=== PATIENT | female | born 1970 | race Caucasian/White ===

== ENCOUNTER 2019-04-25 08:55 | Inpatient (IN) | payer OTHER ==
[2019-04-25] VITALS (10 sets, daily range): BP systolic 96–131; BP diastolic 48–76
[~2019-04-25] VITALS: Ht 160 cm; Wt 109.9 kg
[~2019-04-25 08:55] MED LIST: ASPI-621 PO; IV RINGERS,LACTATED 1000ML 1,000 ML IV SCH; LIDOCAINE 1% PF 2 ML VIAL. ID PRN; MORPHINE SULFATE 2 MG/ML VIAL. IV PRN; ONDANSETRON PF 4 MG/2 ML VIAL. IV PRN; PROCHLORPERAZINE 10 MG/2 ML VIAL. IV PRN; ZOLP10TA PO; fentaNYL PF VIAL 100 MCG/2 ML VIAL IV PRN
[2019-04-25] MEDS ORDERED: MIDAZOLAM HCL/PF 2 MG/2 ML VIAL. ONE (09:04)
[2019-04-25] MEDS ORDERED: fentaNYL PF VIAL 100 MCG/2 ML VIAL ONE ×2 (09:04→11:47)
[2019-04-25] MEDS ORDERED: ONDANSETRON PF 4 MG/2 ML VIAL. ONE (09:05)
[2019-04-25] MEDS ORDERED: LIDOCAINE 2% PF 5 ML VIAL. ONE (09:05)
[2019-04-25] MEDS ORDERED: DEXAMETHASONE SOD PHOS 4 MG/ML VIAL ONE (09:05)
[2019-04-25] MEDS ORDERED: PROPOFOL 20 ML IV ONE ×2 (09:05→11:23)
[2019-04-25] MEDS ORDERED: ROCURONIUM 50 MG/5 ML VIAL. ONE ×2 (09:07→10:48)
[2019-04-25] MEDS ORDERED: SURGICEL HEMOSTAT 4X8 EACH. ONE (09:11)
[2019-04-25] MEDS ORDERED: SCOPOLAMINE 1.5MG PATCH. TD ONE (09:45)
[2019-04-25 09:56] LABS: BASO # 0.1 x10^3/uL (0.0-0.2); BASO % 1 % (0-3); EOS # 0.1 x10^3/uL (0.0-0.7); EOS % 1 % (0-3); HEMATOCRIT 22.8 % (36.0-47.0); LYMPH # 1.3 x10^3/uL (1.0-4.8); LYMPH % 15 % (24-48); MEAN CORPUSCULAR HEMOGLOBIN 20 pg (25-35); MEAN CORPUSCULAR HGB CONC 30 g/dL (31-37); MEAN CORPUSCULAR VOLUME 68 fL (79-100); MONO # 0.8 x10^3/uL (0.0-1.1); MONO % 9 % (0-9); NEUT # 6.6 x10^3/uL (1.8-7.7); NEUT % 75 % (31-73); PLATELET COUNT 476 x10^3/uL (140-400); RED BLOOD COUNT 3.35 x10^6/uL (3.50-5.40); RED CELL DISTRIBUTION WIDTH 18.8 % (11.5-14.5); WHITE BLOOD COUNT 8.8 x10^3/uL (4.0-11.0)
[2019-04-25 10:04] LABS: HEMOGLOBIN 6.8 g/dL (12.0-15.5)
[2019-04-25] MEDS ORDERED: ALBUMIN HUMAN 5% 500 ML IV ONE (10:28)
[2019-04-25] MEDS ORDERED: ceFAZolin 2GM PREMIX 2 GM/50 ML BAG IV ONE (11:00)
[2019-04-25] MEDS ORDERED: NEOSTIGMINE 10 MG/10 ML VIAL. ONE (11:02)
[2019-04-25] MEDS ORDERED: GLYCOPYRROLATE 1 MG/5 ML VIAL. ONE (11:03)
[2019-04-25] MEDS ORDERED: SEVOFLURANE 61 TO 120 MINUTES. IH ONE (11:04)
--- NOTE | 2019-04-25 11:34 | PDOC ---
BRIEF OPERATIVE NOTE Date: Apr 25, 2019 Pre-Op Diagnosis 1. Fibroids 2. Menorrhagia 3. Dysmenorrhea 4. Anemia Post-Op Diagnosis Same Procedure Performed Open Laparotomy Supracervical Hysterectomy Surgeon Dr. Calixto Lock Expert Dr. Burleson Anesthesia Type: General Blood Loss 200 ml Specimens Obtained uterus, marco. fallopian tubes Findings enlarged fibroid uterus, nml fallopian tubes and ovaries marco. Complications none Operative Note see dictation GAGAN CALIXTO Jr, MD Apr 25, 2019 11:34
[2019-04-25] MEDS ORDERED: PROCHLORPERAZINE 10 MG/2 ML VIAL. IV PRN (11:45)
[2019-04-25] MEDS ORDERED: diphenhydrAMINE HCL 25 MG CAPSULE PO PRN (11:45)
[2019-04-25] MEDS ORDERED: diphenhydrAMINE 50 MG/ML VIAL IV PRN (11:45)
[2019-04-25] MEDS ORDERED: 0.9 % SODIUM CHLORIDE 10 ML DISP.SYRIN. IV PRN (11:45)
[2019-04-25] MEDS ORDERED: NALOXONE 0.4 MG/ML VIAL. IV PRN (11:45)
[2019-04-25] MEDS ORDERED: ONDANSETRON PF 4 MG/2 ML VIAL. IV PRN (11:45)
[2019-04-25] MEDS ORDERED: KETOROLAC 30 MG/ML VIAL. IV PRN (11:45)
[2019-04-25] MEDS ORDERED: DEXTROSE 50% 25 GM / 50ML DISP.SYRIN. IV PRN (11:45)
[2019-04-25] MEDS ORDERED: ZOLPIDEM 5 MG TABLET. PO PRN (11:45)
[2019-04-25] MEDS: fentaNYL PF VIAL 100 MCG/2 ML VIAL IV PRN ×2 (11:50→12:02)
[2019-04-25] MEDS ORDERED: MORPHINE SULFATE 2 MG/ML VIAL. ONE (11:50)
[2019-04-25] MEDS ORDERED: fentaNYL STANDARD PCA 600 MCG/30 ML PCA.SYRING IV ONE ×2 (11:57→23:24)
[2019-04-25] MEDS ORDERED: HYDROmorphone 2 MG/ML VIAL ONE (12:00)
--- NOTE | 2019-04-25 12:03 | OP ---
DATE OF SURGERY: 04/25/2019 PREOPERATIVE DIAGNOSES: 1. Fibroids. 2. Menorrhagia. 3. Dysmenorrhea. 4. Severe anemia. POSTOPERATIVE DIAGNOSES: 1. Fibroids. 2. Menorrhagia. 3. Dysmenorrhea. 4. Severe anemia. PROCEDURE: Open laparotomy, supracervical hysterectomy. SURGEON: Gagan Calixto MD ARBORER: Dr. Burleson. ANESTHESIA: GETA. ESTIMATED BLOOD LOSS: 200 mL. COMPLICATIONS: None. FINDINGS: Enlarged fibroid uterus, normal fallopian tubes and ovaries bilaterally. SUMMARY: A 48-year-old female with long history of menorrhagia, dysmenorrhea, and fibroid uterus, requiring hysterectomy. The patient was found to have severe anemia of hemoglobin of 6.8 just prior to surgery today. The patient was counseled on risks, benefits and expectations and possible blood transfusion and voiced clear understanding to proceed. DESCRIPTION OF PROCEDURE: The patient was taken to surgery suite and placed in dorsal supine position. She was prepped with ChloraPrep and draped in a sterile fashion. After adequate anesthesia, a Pfannenstiel skin incision was made with the scalpel down to and through the fascia. The fascia was extended laterally using curved Abraham scissors. The superior edge of the fascia was grasped with 2 Justice clamps and dissected free of the abdominal rectus muscles using blunt dissection along with Bovie cautery. The same process took place inferiorly. The abdominal rectus muscle was dissected bluntly at the midline. Peritoneum was grasped with 2 hemostats and entered sharply with Metzenbaum scissors. This incision was extended superiorly as well as inferiorly. Al ring retractor was placed for retraction purposes. The uterus was grasped at the cornual region bilaterally with Justice clamps. The fallopian tubes and ovaries appeared normal bilaterally. The uterus was enlarged with multiple fibroids as well as one in the posterior cervical area. The bilateral fallopian tubes were grasped with Babcocks, clamped with curved Bartolo clamps, cut, and suture ligated and removed from the pelvic sidewall. The right round ligament was identified and grasped with smooth pickups. Two 2-0 Vicryl sutures were placed proximal and distal area of the round ligament. Bovie cautery was utilized to dissect between the 2 sutures. The same process took place with the left round ligament. The uteroovarian pedicle was clamped bilaterally with curved Bartolo clamps, cut, and suture ligated. Two additional pedicles were taken just adjacent to the uterus, which were clamped, cut, and suture ligated. The posterior fibroid was dissected out using Metzenbaum scissors and blunt dissection and removed. The peritoneum was reapproximated using 2-0 Vicryl suture in a [id number] manner. The bladder flap was created using sharp dissection with Metzenbaum scissors. A moist sponge stick was also further utilized to dissect the bladder away from the lower uterine segment. The cervix was then removed at the level of the lower uterine segment using Bovie cautery. The remaining cervix and cervical canal was fulgurated with the Bovie cautery. The area was hemostatic. Warm irrigation was utilized to verify good hemostasis. The Al ring retractor was then removed. The peritoneum was reapproximated using 1 Vicryl suture in running fashion. Fascia was reapproximated using Stratafix in running fashion. Skin was reapproximated using 4-0 Vicryl suture in subcuticular manner. Prevena wound VAC was placed. The patient did receive 2 units of packed red blood cells during the operation. The patient tolerated the procedure well and was taken to recovery room in stable condition. Sponge and needle count correct x 3. GAGAN CALIXTO MD DR: WARREN/hany JOB#: [id number] / [id number]
[2019-04-25] MEDS: HYDROmorphone 2 MG/ML VIAL IV PRN ×2 (12:42→12:53)
[2019-04-25 12:54] LABS: HEMATOCRIT 28.2 % (36.0-47.0); HEMOGLOBIN 8.4 g/dL (12.0-15.5); RED BLOOD COUNT 3.86 x10^6/uL (3.50-5.40); RED CELL DISTRIBUTION WIDTH 21.3 % (11.5-14.5); WHITE BLOOD COUNT 23.2 x10^3/uL (4.0-11.0)
[2019-04-25 13:19] LABS: ANISOCYTOSIS SLIGHT; HYPOCHROMIA MARKED; MICROCYTOSIS MARKED; PLT ESTIMATE INCREASED (ADEQUATE); POLYCHROMASIA PRESENT
[2019-04-25] MEDS: GABAPENTIN 300 MG CAPSULE. PO SCH ×2 (14:30→22:24)
[2019-04-25] MEDS: IV NORMAL SALINE 1000ML BAG 1,000 ML IV SCH (22:24)
[2019-04-26 03:51] VITALS: BP 97/74
[2019-04-26] MEDS: GABAPENTIN 300 MG CAPSULE. PO SCH ×3 (05:29→22:46)
[2019-04-26 06:03] LABS: BASO # 0.1 x10^3/uL (0.0-0.2); BASO % 1 % (0-3); EOS % 0 % (0-3); HEMATOCRIT 24.6 % (36.0-47.0); HEMOGLOBIN 7.5 g/dL (12.0-15.5); LYMPH # 1.7 x10^3/uL (1.0-4.8); LYMPH % 13 % (24-48); MEAN CORPUSCULAR HEMOGLOBIN 22 pg (25-35); MEAN CORPUSCULAR HGB CONC 30 g/dL (31-37); MEAN CORPUSCULAR VOLUME 73 fL (79-100); MONO # 1.2 x10^3/uL (0.0-1.1); MONO % 9 % (0-9); NEUT # 10.4 x10^3/uL (1.8-7.7); NEUT % 78 % (31-73); PLATELET COUNT 289 x10^3/uL (140-400); RED BLOOD COUNT 3.38 x10^6/uL (3.50-5.40); RED CELL DISTRIBUTION WIDTH 20.6 % (11.5-14.5); WHITE BLOOD COUNT 13.4 x10^3/uL (4.0-11.0)
[2019-04-26 07:00] VITALS: BP 114/62
[2019-04-26] MEDS: oxyCODONE/APAP 5/325 1 TAB TABLET PO PRN ×4 (07:32→20:02)
[2019-04-26] MEDS: SIMETHICONE 80 MG TAB.CHEW PO PRN ×2 (07:32→13:35)
[2019-04-26] MEDS: CALCIUM CARBONATE 500 MG TAB.CHEW PO PRN ×2 (07:32→13:35)
[2019-04-26] MEDS: IV NORMAL SALINE 1000ML BAG 1,000 ML IV SCH (08:03)
[2019-04-26 11:00] VITALS: BP 96/58
[2019-04-26 15:00] VITALS: BP 102/61
[2019-04-26] MEDS ORDERED: MAGNESIUM HYDROXIDE 2,400 MG/30 ML ORAL.SUSP. PO ONE (15:30)
--- NOTE | 2019-04-26 15:32 | PDOC ---
GENERAL General: No fever. Pt wants to have laxative. Incision healing. VITAL SIGNS Vital Signs/I&O: Vital Signs Date Time Temp Pulse Resp B/P (MAP) Pulse Ox O2 Delivery O2 Flow Rate FiO2 04/26/19 11:00 97.7 89 14 96/58 (71) 95 Room Air 97.7 04/26/19 08:00 2.0 I & O 04/25/19 04/25/19 04/26/19 14:59 22:59 06:59 Intake Total 2650 ml 410 ml 120 ml Output Total 425 ml 250 ml 1200 ml Balance 2225 ml 160 ml -1080 ml ALLERGIES Allergies: Allergies Coded Allergies Type Severity Reaction Last Updated Verified Sulfa (Sulfonamide Antibiotics) Allergy Intermediate RASH,HIVES 04/22/19 Yes latex Allergy Intermediate "JOSE SKIN" 04/22/19 Yes tramadol Adverse Reaction Intermediate "MAJOR MOOD SWINGS" 04/22/19 Yes LAB Lab: Laboratory Tests Test 04/26/19 05:12 White Blood Count 13.4 x10^3/uL (4.0-11.0) H Red Blood Count 3.38 x10^6/uL (3.50-5.40) L Hemoglobin 7.5 g/dL (12.0-15.5) L Hematocrit 24.6 % (36.0-47.0) L Mean Corpuscular Volume 73 fL (79-100) L Mean Corpuscular Hemoglobin 22 pg (25-35) L Mean Corpuscular Hemoglobin Concent 30 g/dL (31-37) L Red Cell Distribution Width 20.6 % (11.5-14.5) H Platelet Count 289 x10^3/uL (140-400) Neutrophils (%) (Auto) 78 % (31-73) H Lymphocytes (%) (Auto) 13 % (24-48) L Monocytes (%) (Auto) 9 % (0-9) Eosinophils (%) (Auto) 0 % (0-3) Basophils (%) (Auto) 1 % (0-3) Neutrophils # (Auto) 10.4 x10^3/uL (1.8-7.7) H Lymphocytes # (Auto) 1.7 x10^3/uL (1.0-4.8) Monocytes # (Auto) 1.2 x10^3/uL (0.0-1.1) H Eosinophils # (Auto) 0.0 x10^3/uL (0.0-0.7) Basophils # (Auto) 0.1 x10^3/uL (0.0-0.2) Laboratory Tests 04/26/19 05:12 ASSESSMENT & PLAN A&P Abdomen soft. Vital signs stable. Incision healing ok. MIRA COWAN MD Apr 26, 2019 15:31
[2019-04-26 19:00] VITALS: BP 106/78
--- NOTE | 2019-04-26 23:51 | NUR ---
Administered 2 Percocet at 2001, scanned but it did not save.
[2019-04-27] MEDS: oxyCODONE/APAP 5/325 1 TAB TABLET PO PRN ×4 (00:43→13:45)
[2019-04-27 03:26] VITALS: BP 101/66
[2019-04-27] MEDS: GABAPENTIN 300 MG CAPSULE. PO SCH ×2 (05:26→13:44)
[2019-04-27 07:00] VITALS: BP 107/63
[2019-04-27] MEDS ORDERED: MAGNESIUM HYDROXIDE 2,400 MG/30 ML ORAL.SUSP. PO ONE (07:15)
[2019-04-27 08:12] VITALS: BP 107/63
--- NOTE | 2019-04-27 08:51 | PDOC ---
GENERAL General: Pt doing better. No Bleeding. VITAL SIGNS Vital Signs/I&O: Vital Signs Date Time Temp Pulse Resp B/P (MAP) Pulse Ox O2 Delivery O2 Flow Rate FiO2 04/27/19 08:12 97.9 79 16 107/63 (78) Room Air 95.0 97.9 04/27/19 07:00 95 I & O 04/26/19 04/26/19 04/27/19 15:00 23:00 07:00 Intake Total 1400 ml 1000 ml 1200 ml Balance 1400 ml 1000 ml 1200 ml ALLERGIES Allergies: Allergies Coded Allergies Type Severity Reaction Last Updated Verified Sulfa (Sulfonamide Antibiotics) Allergy Intermediate RASH,HIVES 04/22/19 Yes latex Allergy Intermediate "JOSE SKIN" 04/22/19 Yes tramadol Adverse Reaction Intermediate "MAJOR MOOD SWINGS" 04/22/19 Yes MEDS Medications: Current Medications Medications (Trade) Dose Ordered Sig/Josh Route PRN Reason Start Time Stop Time Status Last Admin Dose Admin Magnesium Hydroxide (Milk Of Magnesia) 2,400 mg 1X ONCE PO 04/26/19 15:30 04/26/19 15:31 DC 04/26/19 15:59 Magnesium Hydroxide (Milk Of Magnesia) 2,400 mg 1X ONCE PO 04/27/19 07:15 04/27/19 07:26 DC 04/27/19 07:42 ASSESSMENT & PLAN A&P dismissed to Home today. Pt to call Dr Barnes office and make appt in 2 weeks. MIRA COWAN MD Apr 27, 2019 08:51
[2019-04-27 11:00] VITALS: BP 111/64
--- NOTE | 2019-04-27 15:20 | NUR ---
Wound Care Pt seen for Prevena follow up and transition from hospital vac to Prevena pack motor. Motor unable to maintain seal and suction with current dressing d/t numerous puckers and folds in transparent drape, even after multiple attempts to patch and seal with additional drape. Per physician orders of pt needing discharge with Prevena in place, a new Prevena dressing was applied. Original dressing removed, incision line well approximated, scant serosanguinous drainage on dressing, incision line cleaned with chloroprep swabs and new Prevena dressing was applied. Strong seal achieved, no leaks noted, pt education provided re: device and removal in 7 days when engine turns off. Evette, RN at bedside, to provide additional d/c instructions re: incisional care after Prevena removal. Hospital vac returned to [facility] for cleaning, Fady, wound Director at bedside for dressing change.
--- NOTE | 2019-04-27 17:10 | NUR ---
Patient discharged home with significant other at bedside. No IV access this shift. Patient and family were provided with discharge instructions, including follow up instructions, mobility restrictions, and wound care. Patient was also provided patient teaching regarding her Provena Wound Vac. Patient was assisted to the car by this RN
--- NOTE | 2019-04-28 09:07 | PATHOLOGY ---
[facility] Accession Number: [id number] . 01 Material submitted: . PART A: fallopian tube - RIGHT FALLOPIAN TUBE. Modifiers: right PART B: fallopian tube - LEFT FALLOPIAN TUBE. Modifiers: left PART C: uterus - UTERUS . 01 Clinical history: . Abnormal uterine bleeding . 02 Diagnosis: A. Fallopian tube, right, tubal ligation: - Segment of fallopian tube with evidence of complete transection. . B. Fallopian tube, left, tubal ligation: - Segment of fallopian tube with evidence of complete transection. . C. Uterus, supracervical hysterectomy: - Secretory phase endometrium. - Myometrium with multiple leiomyomata, up to 4.7 cm. - Serosal surface with focal adhesions. . (SKM:tommy; 04/27/2019) [facility] 04/27/2019 1612 Local . 02 Electronically signed: . Tomas Vickers MD, Pathologist NPI- [id number] . 01 Gross description: . A. The specimen is received in formalin, labeled "Taylor Siddiqui, right fallopian tube". Received is a non-fimbriated fallopian tube measuring 2.4 cm in length by 0.5 cm in diameter. The serosal surface is pink-irwin and glistening in appearance. Sectioning reveals a patent lumen. The specimen is submitted representatively in cassette A1. . B. The specimen is received in formalin, labeled "Taylor Siddiqui, left fallopian tube". Received is a fimbriated fallopian tube measuring 1.5 cm in length by 0.5 cm in diameter. The serosal surface is pink-irwin and smooth in appearance. Sectioning reveals a pinpoint to patent lumen. The specimen is submitted representatively in cassette B1. . C. The specimen is received in formalin, labeled "Taylor Siddiqui, uterus". Received is a 228 Gram, 7.5 x 7.9 x 6.1 cm uterine corpus. The uterine serosa is pink-irwin in appearance with a slight amount of overlying adhesions. The cervix is absent. The uterine corpus cannot be oriented. Opening the specimen reveals a triangular endometrial cavity measuring 5.3 cm in length by 2.8 cm in width. The endometrium is pale irwin, glistening and lush in appearance, and measures up to 0.3 cm in thickness. Serial sectioning reveals a irwin-pink, trabeculated myometrium measuring up to up to 3.0 cm in thickness displaying multiple intramural fibroids ranging in size from 0.3 to 2.1 cm in maximum dimensions. . Also received within the specimen container is a 30 g, 4.7 x 3.5 x 3.5 cm fibroid. Sectioning reveals white-irwin, whorled cut surfaces with no gross evidence of degeneration or necrosis. The specimen is submitted representatively as follows: . C1 serosal adhesions C2-C3 endomyometrium and opposite endomyometrium with fibroids C4-C5 senior outside sales representative sections of intramural fibroids C6 senior outside sales representative sections of separately submitted fibroid. (CAA; 04/26/2019) QAC/QAC 04/26/2019 1613 Local . 02 Pathologist provided ICD-10: D25.9, N73.6, Z30.2 . 02 CPT . 199058, 782319, [id number] Specimen Comment: A courtesy copy of this report has been sent to [phone] Specimen Comment: Report sent to Specimen Comment: A duplicate report has been generated due to demographic updates. Performed at: 01 [facility] [address], [place] [id number] MD Festus Duarte MD Phone: [phone] Performed at: 02 [facility] [address] [place], [place] [id number] MD John Woodward MD Phone: [phone]
== END 2019-04-27 15:45 | disposition home or self-care (01) | DRG 743 ==
LOC: SURG 08:55 → EDBD 09:30 → 3 NORTH 11:34 → OBSVTOIN 11:36 → INTOOBSV 11:36
PROVIDERS: ADMIT Obstetrics & Gynecology; ATTEND Obstetrics & Gynecology
PROC: 30233N1 Transfusion of Nonautologous Red Blood Cells into Peripheral Vein, Percutaneous Approach (ICD-10-PCS; 2019-04-25)
PROC: 0UT90ZL Resection of Uterus, Supracervical, Open Approach (ICD-10-PCS; principal; 2019-04-25 09:30)
DX: D25.9 Leiomyoma of uterus, unspecified (principal); N92.0 Excessive and frequent menstruation with regular cycle; N94.6 Dysmenorrhea, unspecified; D64.9 Anemia, unspecified; Z88.2 Allergy status to sulfonamides; Z88.8 Allergy status to other drugs, medicaments and biological substances; Z91.040 Latex allergy status
CPT/HCPCS: 36415; 81025; 85025; 85027; 86850; 86900; 86901; 86920; A7015; G0379; J0696; J1100; J1170; J2001; J2250; J2270; J2405; J2704; J2710; J3010; J3490; J7030; J7120; P9016; P9045; A4461; G0378

== ENCOUNTER 2019-05-09 10:58 | Observation (INO) | payer OTHER ==
[~2019-05-09] VITALS: Ht 162.6 cm; Wt 104.3 kg
[~2019-05-09 10:58] MED LIST changes: -IV RINGERS,LACTATED 1000ML 1,000 ML IV SCH; -LIDOCAINE 1% PF 2 ML VIAL. ID PRN; -MORPHINE SULFATE 2 MG/ML VIAL. IV PRN; -ONDANSETRON PF 4 MG/2 ML VIAL. IV PRN; -PROCHLORPERAZINE 10 MG/2 ML VIAL. IV PRN; -fentaNYL PF VIAL 100 MCG/2 ML VIAL IV PRN
[2019-05-09] MEDS ORDERED: MORPHINE SULFATE 4 MG/ML VIAL. IV ONE ×2 (11:45→13:30)
[2019-05-09] MEDS ORDERED: ONDANSETRON PF 4 MG/2 ML VIAL. IV ONE (11:45)
[2019-05-09 12:19] LABS: BASO # 0.1 x10^3/uL (0.0-0.2); BASO % 1 % (0-3); EOS # 0.3 x10^3/uL (0.0-0.7); EOS % 2 % (0-3); HEMOGLOBIN 8.4 g/dL (12.0-15.5); LYMPH % 18 % (24-48); MEAN CORPUSCULAR HEMOGLOBIN 22 pg (25-35); MEAN CORPUSCULAR HGB CONC 31 g/dL (31-37); MEAN CORPUSCULAR VOLUME 70 fL (79-100); MONO # 0.9 x10^3/uL (0.0-1.1); MONO % 8 % (0-9); NEUT # 7.8 x10^3/uL (1.8-7.7); NEUT % 71 % (31-73); PLATELET COUNT 573 x10^3/uL (140-400); RED BLOOD COUNT 3.86 x10^6/uL (3.50-5.40); RED CELL DISTRIBUTION WIDTH 21.7 % (11.5-14.5)
[2019-05-09 12:25] LABS: CALCIUM 8.9 mg/dL (8.5-10.1); CREATININE 0.7 mg/dL (0.6-1.0); GFR 90.1; POTASSIUM 3.9 mmol/L (3.5-5.1)
[2019-05-09 12:31] LABS: ALBUMIN 3.8 g/dL (3.4-5.0); PROTHROMBIN TIME PATIENT 13.1 SEC (11.7-14.0); TOTAL BILIRUBIN 0.3 mg/dL (0.2-1.0); TOTAL PROTEIN 7.7 g/dL (6.4-8.2)
[2019-05-09] MEDS ORDERED: IOHEXOL 300 MG/ML 100ML VIAL. IV ONE (13:00)
[2019-05-09 13:09] LABS: PLT ESTIMATE INCREASED (ADEQUATE)
[2019-05-09] MEDS ORDERED: CONTRAST GIVEN. MC PRN (13:15)
[2019-05-09 13:17] LABS: ANISOCYTOSIS MOD; MICROCYTOSIS MOD
[2019-05-09 13:18] LABS: HYPOCHROMIA SLIGHT; OVALOCYTES FEW; POIKILOCYTOSIS MOD; POLYCHROMASIA SLIGHT; STOMATOCYTES FEW; TARGET CELLS FEW; TEAR DROP CELLS FEW
--- NOTE | 2019-05-09 14:01 | RAD ---
PQRS Compliance Statement: One or more of the following individualized dose reduction techniques were utilized for this examination: 1. Automated exposure control 2. Adjustment of the mA and/or kV according to patient size 3. Use of iterative reconstruction technique CT abdomen/pelvis with contrast 05/09/2019 11:42 AM INDICATION: Lower abdominal pain with recent hysterectomy. COMPARISON: None available TECHNIQUE: Multiple axial CT images of the abdomen and pelvis were obtained after the intravenous administration of 75 mL Omnipaque 300. Coronal and sagittal reformats are provided. FINDINGS: Lung bases are clear. Heart size within normal limits. There is a moderate sized hiatal hernia. Liver, spleen, bilateral adrenal glands, pancreas and gallbladder are normal in appearance. Abdominal aorta is normal in course and caliber. No pathologically enlarged lymph nodes are identified in abdomen and pelvis. There is no free fluid or free intraperitoneal air. The kidneys enhance symmetrically. There is no suspicious renal mass. There is no hydronephrosis. There are no suspected calculi within the kidneys, ureters or urinary bladder. Urinary bladder is within normal limits given degree of distention. Left adnexal cyst measures 3.5 cm and may represent a dominant follicle or hemorrhagic cyst. Mild infiltration is identified along the fat along the margins of the vaginal cuff. Mild colonic diverticulosis. There are is mild mural edema involving the cecum which is poorly evaluated without oral contrast. Appendix is not definitively visualized. There is a subcutaneous fluid collection measuring 2.8 x 14.8 x 7.8 cm along the inferior pannus. There is associated skin thickening. No definite rim enhancement is visualized. Consideration may be given for a postoperative seroma although sterility of the collection is indeterminate. IMPRESSION: 1. There is a superficial subcutaneous fluid collection superior to the mons along the inferior pannus which may represent a postoperative seroma or developing abscess. 2. Inflammatory changes are identified along the vaginal cuff, likely postoperative. Left adnexal cyst measures 3.5 cm. Correlate with history of oophorectomy. The ovaries have been removed, abscess may have similar appearance. If ovaries are present, findings most favor a dominant follicle or hemorrhagic cyst. This may be confirmed with pelvic ultrasound. 3. Ill-definition of the cecum with suspected mural edema. Findings could reflect colitis. Appendix is not definitively visualized. If there is persistent clinical concern, CT pelvis with oral contrast may be of benefit. Correlate with site of abdominal pain. 4. Moderate-sized hiatal hernia. Electronically signed by: Christine Delagdo MD (05/09/2019 1:58 PM) [id number]
--- NOTE | 2019-05-09 14:09 | PHYS DOC ---
Past Medical History Past Medical History: No Pertinent History Past Surgical History: Appendectomy, Hysterectomy, Tubal ligation Additional Past Surgical Histo: CARPAL TUNNEL Alcohol Use: None Drug Use: None Adult General Chief Complaint Chief Complaint: POST-OP PROBLEM HPI HPI Patient is a 48 year old female presented to ER today for evaluation of lower abdominal pain, patient had hysterectomy 2 weeks ago. Patient felt like there is increased swelling and tenderness along the incision site area. She denies any fever, no nausea vomiting. 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 aLL OTHER ros IS NEGATIVE UNLESS OTHERWISE NOTED IN hpi Review of Systems Review of Systems See above Current Medications Current Medications Current Medications Medications (Trade) Dose Ordered Sig/Josh Start Time Stop Time Status Last Admin Dose Admin Info (CONTRAST GIVEN -- Rx MONITORING) 1 each PRN DAILY PRN 05/09/19 13:15 05/11/19 13:14 Iohexol (Omnipaque 300 Mg/ml) 75 ml 1X ONCE 05/09/19 13:00 05/09/19 13:01 DC 05/09/19 13:09 75 ML Morphine Sulfate (Morphine Sulfate) 4 mg PRN Q4HRS PRN 05/09/19 14:15 05/10/19 14:14 UNV Ondansetron HCl (Zofran) 4 mg PRN Q8HRS PRN 05/09/19 14:15 05/10/19 14:14 UNV Allergies Allergies Allergies Coded Allergies Type Severity Reaction Last Updated Verified Sulfa (Sulfonamide Antibiotics) Allergy Intermediate RASH,HIVES 04/22/19 Yes latex Allergy Intermediate "JOSE SKIN" 04/22/19 Yes tramadol Adverse Reaction Intermediate "MAJOR MOOD SWINGS" 04/22/19 Yes Physical Exam Physical Exam See above Constitutional: Well developed, well nourished, no acute distress, non-toxic appearance. [] HENT: Normocephalic, atraumatic, bilateral external ears normal, oropharynx moist, no oral exudates, nose normal. [] Eyes: PERRLA, EOMI, conjunctiva normal, no discharge. [] Neck: Normal range of motion, no tenderness, supple, no stridor. [] Cardiovascular:Heart rate regular rhythm, no murmur [] Lungs & Thorax: Bilateral breath sounds clear to auscultation [] Abdomen: Bowel sounds normal, soft, THERE IS tenderness TO PALPATION JUST BELOW THE UMBILICAL AREA, LARGE INDURATED, LOCULATED AREA ALONG THE INCISION SITE, NO OPEN WOUND, NO DRAINAGE, no masses, no pulsatile masses. [] Skin: Warm, dry, no erythema, no rash. [] Back: No tenderness, no CVA tenderness. [] Extremities: No tenderness, no cyanosis, no clubbing, ROM intact, no edema. [] Neurologic: Alert and oriented X 3, normal motor function, normal sensory function, no focal deficits noted. [] Psychologic: Affect normal, judgement normal, mood normal. [] Current Patient Data Vital Signs Vital Signs Date Time Temp Pulse Resp B/P (MAP) Pulse Ox O2 Delivery O2 Flow Rate FiO2 05/09/19 13:06 16 97 Room Air 05/09/19 11:50 98.5 82 136/72 (93) 98.5 Lab Values Laboratory Tests Test 05/09/19 12:00 White Blood Count 11.0 x10^3/uL (4.0-11.0) Red Blood Count 3.86 x10^6/uL (3.50-5.40) Hemoglobin 8.4 g/dL (12.0-15.5) L Hematocrit 27.0 % (36.0-47.0) L Mean Corpuscular Volume 70 fL (79-100) L Mean Corpuscular Hemoglobin 22 pg (25-35) L Mean Corpuscular Hemoglobin Concent 31 g/dL (31-37) Red Cell Distribution Width 21.7 % (11.5-14.5) H Platelet Count 573 x10^3/uL (140-400) H Neutrophils (%) (Auto) 71 % (31-73) Lymphocytes (%) (Auto) 18 % (24-48) L Monocytes (%) (Auto) 8 % (0-9) Eosinophils (%) (Auto) 2 % (0-3) Basophils (%) (Auto) 1 % (0-3) Neutrophils # (Auto) 7.8 x10^3/uL (1.8-7.7) H Lymphocytes # (Auto) 2.0 x10^3/uL (1.0-4.8) Monocytes # (Auto) 0.9 x10^3/uL (0.0-1.1) Eosinophils # (Auto) 0.3 x10^3/uL (0.0-0.7) Basophils # (Auto) 0.1 x10^3/uL (0.0-0.2) Platelet Estimate Increased (ADEQUATE) Polychromasia Slight Hypochromasia Slight Poikilocytosis Mod Anisocytosis Mod Microcytosis Mod Target Cells Few Tear Drop Cells Few Ovalocytes Few Stomatocytes Few Prothrombin Time 13.1 SEC (11.7-14.0) Prothrombin Time INR 1.0 (0.8-1.1) Activated Partial Thromboplast Time 31 SEC (24-38) Sodium Level 138 mmol/L (136-145) Potassium Level 3.9 mmol/L (3.5-5.1) Chloride Level 103 mmol/L (98-107) Carbon Dioxide Level 25 mmol/L (21-32) Anion Gap 10 (6-14) Blood Urea Nitrogen 15 mg/dL (7-20) Creatinine 0.7 mg/dL (0.6-1.0) Estimated GFR (Cockcroft-Gault) 90.1 BUN/Creatinine Ratio 21 (6-20) H Glucose Level 93 mg/dL (70-99) Calcium Level 8.9 mg/dL (8.5-10.1) Total Bilirubin 0.3 mg/dL (0.2-1.0) Aspartate Amino Transferase (AST) 12 U/L (15-37) L Alanine Aminotransferase (ALT) 13 U/L (14-59) L Alkaline Phosphatase 87 U/L (46-116) Total Protein 7.7 g/dL (6.4-8.2) Albumin 3.8 g/dL (3.4-5.0) Albumin/Globulin Ratio 1.0 (1.0-1.7) Lipase 105 U/L (73-393) Laboratory Tests 05/09/19 12:00 Laboratory Tests 05/09/19 12:00 EKG EKG [] Radiology/Procedures Radiology/Procedures [][facility] [address] [place] [address] IMAGING REPORT Signed PATIENT: ARCENIO SCOTTOUNT: [id number] : 1970 LOCATION: ER AGE: 48 SEX: F EXAM STATUS: REG ER ORD. PHYSICIAN: JUNIOR GOLD DO REASON: LOWER ABDOMINAL PAIN, RECENT HYSTERECTOMY PROCEDURE: CT ABD PELV W/ IV CONTRST ONLY PQRS Compliance Statement: One or more of the following individualized dose reduction techniques were utilized for this examination: 1. Automated exposure control 2. Adjustment of the mA and/or kV according to patient size 3. Use of iterative reconstruction technique CT abdomen/pelvis with contrast 05/09/2019 11:42 AM INDICATION: Lower abdominal pain with recent hysterectomy. COMPARISON: None available TECHNIQUE: Multiple axial CT images of the abdomen and pelvis were obtained after the intravenous administration of 75 mL Omnipaque 300. Coronal and sagittal reformats are provided. FINDINGS: Lung bases are clear. Heart size within normal limits. There is a moderate sized hiatal hernia. Liver, spleen, bilateral adrenal glands, pancreas and gallbladder are normal in appearance. Abdominal aorta is normal in course and caliber. No pathologically enlarged lymph nodes are identified in abdomen and pelvis. There is no free fluid or free intraperitoneal air. The kidneys enhance symmetrically. There is no suspicious renal mass. There is no hydronephrosis. There are no suspected calculi within the kidneys, ureters or urinary bladder. Urinary bladder is within normal limits given degree of distention. Left adnexal cyst measures 3.5 cm and may represent a dominant follicle or hemorrhagic cyst. Mild infiltration is identified along the fat along the margins of the vaginal cuff. Mild colonic diverticulosis. There are is mild mural edema involving the cecum which is poorly evaluated without oral contrast. Appendix is not definitively visualized. There is a subcutaneous fluid collection measuring 2.8 x 14.8 x 7.8 cm along the inferior pannus. There is associated skin thickening. No definite rim enhancement is visualized. Consideration may be given for a postoperative seroma although sterility of the collection is indeterminate. IMPRESSION: 1. There is a superficial subcutaneous fluid collection superior to the mons along the inferior pannus which may represent a postoperative seroma or developing abscess. 2. Inflammatory changes are identified along the vaginal cuff, likely postoperative. Left adnexal cyst measures 3.5 cm. Correlate with history of oophorectomy. The ovaries have been removed, abscess may have similar appearance. If ovaries are present, findings most favor a dominant follicle or hemorrhagic cyst. This may be confirmed with pelvic ultrasound. 3. Ill-definition of the cecum with suspected mural edema. Findings could reflect colitis. Appendix is not definitively visualized. If there is persistent clinical concern, CT pelvis with oral contrast may be of benefit. Correlate with site of abdominal pain. 4. Moderate-sized hiatal hernia. Electronically signed by: Tiffanie Morales MD (05/09/2019 1:58 PM) [id number] DICTATED and SIGNED BY: TIFFANIE MORALES MD DATE: 05/09/19 2077 Course & Med Decision Making Course & Med Decision Making Pertinent Labs and Imaging studies reviewed. (See chart for details) [] Dragon Disclaimer Dragon Disclaimer This electronic medical record was generated, in whole or in part, using a voice recognition dictation system. Departure Departure Impression: Primary Impression: Seroma after procedure Additional Impression: Postoperative abdominal pain Disposition: ADMITTED INPATIENT Admitting Physician: WENDY (DR. GAGAN GARCIA) Condition: STABLE Referrals: ISAAK CALLOWAY MD (PCP) Problem Qualifiers JUNIOR GOLD DO May 09, 2019 14:09
[2019-05-09] MEDS ORDERED: ONDANSETRON PF 4 MG/2 ML VIAL. IV PRN (14:15)
[2019-05-09] MEDS ORDERED: fentaNYL PF VIAL 100 MCG/2 ML VIAL IVP ONE (14:30)
[2019-05-09] MEDS: MORPHINE SULFATE 4 MG/ML VIAL. IV PRN ×2 (15:51→20:00)
[2019-05-09] MEDS ORDERED: ACETAMINOPHEN 500 MG TABLET PO PRN ×2 (16:45)
[2019-05-09] MEDS ORDERED: IBUPROFEN 400 MG TABLET. PO PRN (16:45)
[2019-05-09] MEDS ORDERED: KETOROLAC 30 MG/ML VIAL. IVP PRN ×2 (16:45→20:30)
[2019-05-09 17:01] VITALS: BP 112/92
[2019-05-09] MEDS: IV RINGERS,LACTATED 1000ML 1,000 ML IV SCH ×2 (17:19→23:46)
[2019-05-09 19:00] VITALS: BP 111/74
[2019-05-09] MEDS ORDERED: oxyCODONE/APAP 7.5/325 1 TAB TABLET PO PRN (20:30)
--- NOTE | 2019-05-09 20:38 | PDOC1 ---
History and Physical Date of Admission Date of Admission DATE: 05/09/19 TIME: 20:32 Identification/Chief Complaint Chief Complaint abd pain Source Source: Chart review, Patient History of Present Illness History of Present Illness 48 y/o presented to ED with c/o abd pain and night sweats for past 2 days. She had supracervical hysterectomy open lap 1 week ago without complications. CT scan indicates seroma. She denies any drainage from incision site. Past Medical History Cardiovascular: No pertinent hx Pulmonary: No pertinent hx GI: No pertinent hx Heme/Onc: No pertinent hx Hepatobiliary: No pertinent hx Psych: No pertinent hx Rheumatologic: No pertinent hx Past Surgical History Past Surgical History: Other (supracervical hysterectomy) Current Problem List Problem List Problems Medical Problems: (1) Postoperative abdominal pain Status: Acute (2) Seroma after procedure Status: Acute Current Medications Current Medications Current Medications Morphine Sulfate (Morphine Sulfate) 4 mg 1X ONCE IV Last administered on 05/09/19at 12:14; Start 05/09/19 at 11:45; Stop 05/09/19 at 11:46; Status DC Ondansetron HCl (Zofran) 4 mg 1X ONCE IV Last administered on 05/09/19at 12:14; Start 05/09/19 at 11:45; Stop 05/09/19 at 11:46; Status DC Iohexol (Omnipaque 300 Mg/ml) 75 ml 1X ONCE IV Last administered on 05/09/19at 13:09; Start 05/09/19 at 13:00; Stop 05/09/19 at 13:01; Status DC Info (CONTRAST GIVEN -- Rx MONITORING) 1 each PRN DAILY PRN MC SEE COMMENTS; Start 05/09/19 at 13:15; Stop 05/11/19 at 13:14 Morphine Sulfate (Morphine Sulfate) 4 mg 1X ONCE IV Last administered on 05/09/19at 14:13; Start 05/09/19 at 13:30; Stop 05/09/19 at 13:32; Status DC Ondansetron HCl (Zofran) 4 mg PRN Q8HRS PRN IV NAUSEA/VOMITING; Start 05/09/19 at 14:15; Stop 05/10/19 at 14:14 Morphine Sulfate (Morphine Sulfate) 4 mg PRN Q4HRS PRN IV PAIN Last administer ed on 05/09/19at 20:00; Start 05/09/19 at 14:15; Stop 05/10/19 at 14:14 Fentanyl Citrate (Fentanyl 2ml Vial) 50 mcg 1X ONCE IVP Last administered on 05/09/19at 14:46; Start 05/09/19 at 14:30; Stop 05/09/19 at 14:31; Status DC Ringer's Solution 1,000 ml @ 150 mls/hr Q6H40M IV Last administered on 05/09/19at 17:19; Start 05/09/19 at 16:45 Acetaminophen (Tylenol) 500 mg PRN Q4HRS PRN PO MILD PAIN / TEMP; Start 05/09/19 at 16:45 Acetaminophen (Tylenol) 500 mg PRN Q6HRS PRN PO MILD PAIN / TEMP; Start 05/09/19 at 16:45; Status UNV Ibuprofen (Motrin) 800 mg PRN Q8HRS PRN PO INFLAMMATION; Start 05/09/19 at 16:45 Ketorolac Tromethamine (Toradol 30mg Vial) 30 mg PRN 1X PRN IVP PAIN; Start 05/09/19 at 16:45; Stop 05/14/19 at 16:44 Active Scripts Active Reported Ambien (Zolpidem Tartrate) 10 Mg Tablet 10 Mg PO PRN QHS PRN Excedrin Extra Strength Caplet (Aspirin/Acetaminophen/Caffeine) 1 Each Tablet 1 Each PO PRN PRN Allergies Allergies: Coded Allergies: Sulfa (Sulfonamide Antibiotics) (Verified Allergy, Intermediate, RASH,HIVES, 04/22/19) latex (Verified Allergy, Intermediate, "JOSE SKIN", 04/22/19) tramadol (Verified Adverse Reaction, Intermediate, "MAJOR MOOD SWINGS", 04/22/19) ROS General: YES: Night Sweats, Fatigue; No: Chills, Malaise, Appetite, Other PSYCHOLOGICAL ROS: YES: Anxiety; No: Behavioral Disorder, Concentration difficultie, Decreased libido, Depression, Disorientation, Hallucinations, Hostility, Irritablity, Memory difficulties, Mood Swings, Obsessive thoughts, Physical abuse, Sexual abuse, Sleep disturbances, Suicidal ideation, Other Eyes: No Blurry vision, No Decreased vision, No Double vision, No Dry eyes, No Excessive tearing, No Eye Pain, No Itchy Eyes, No Loss of vision, No Photophobia, No Scotomata, No Uses contacts, No Uses glasses, No Other HEENT: No: Heacaches, Visual Changes, Hearing change, Nasal congestion, Nasal discharge, Oral lesions, Sinus pain, Sore Throat, Epistaxis, Sneezing, Snoring, Tinnitus, Vertigo, Vocal changes, Other ALLERGY AND IMMUNOLOGY: No: Hives, Insect Bite Sensitivity, Itchy/Watery Eyes, Nasal Congestion, Post Nasal Drip, Seasonal Allergies, Other Breast: No New/Changing Breast Lumps, No Nipple changes, No Nipple discharge, No Other Respiratory: No: Cough, Hemoptysis, Orthopnea, Pleuritic Pain, Shortness of breath, SOB with excertion, Sputum Changes, Stridor, Tachypnea, Wheezing, Other Cardiovascular: No Chest Pain, No Palpitations, No Orthopnea, No Paroxysmal Noc. Dyspnea, No Edema, No Lt Headedness, No Other Gastrointestinal: Yes Nausea, Yes Vomiting, Yes Abdominal Pain, Yes Diarrhea, Yes Constipation Genitourinary: No Dysuria, No Frequency, No Incontinence, No Hematuria, No Retention, No Discharge, No Urgency, No Pain, No Flank Pain, No Other, No , No , No , No , No , No , No Musculoskeletal: No Gait Disturbance, No Joint Pain, No Joint Stiffness, No Joint Swelling, No Muscle Pain, No Muscular Weakness, No Pain In:, No Swelling In:, No Other Skin: No Dry Skin, No Eczema, No Hair Changes, No Lumps, No Mole Changes, No Mottling, No Nail Changes, No Pruritus, No Rash, No Skin Lesion Changes, No Other, No Acne Physical Exam General: Alert, Oriented X3, Cooperative HEENT: Atraumatic Lungs: Clear to auscultation Heart: S1S2 Breasts: Normal Abdomen: Normal bowel sounds, Soft, No masses, Other (moderate tenderness; incision site: clean, dry and intact) Psych/Mental Status: Mental status NL Vitals Vitals Vital Signs Date Time Temp Pulse Resp B/P (MAP) Pulse Ox O2 Delivery O2 Flow Rate FiO2 05/09/19 20:10 Room Air 05/09/19 17:01 97.7 75 20 112/92 (99) 98 97.7 Labs Labs Laboratory Tests Test 05/09/19 12:00 White Blood Count 11.0 x10^3/uL (4.0-11.0) Red Blood Count 3.86 x10^6/uL (3.50-5.40) Hemoglobin 8.4 g/dL (12.0-15.5) Hematocrit 27.0 % (36.0-47.0) Mean Corpuscular Volume 70 fL (79-100) Mean Corpuscular Hemoglobin 22 pg (25-35) Mean Corpuscular Hemoglobin Concent 31 g/dL (31-37) Red Cell Distribution Width 21.7 % (11.5-14.5) Platelet Count 573 x10^3/uL (140-400) Neutrophils (%) (Auto) 71 % (31-73) Lymphocytes (%) (Auto) 18 % (24-48) Monocytes (%) (Auto) 8 % (0-9) Eosinophils (%) (Auto) 2 % (0-3) Basophils (%) (Auto) 1 % (0-3) Neutrophils # (Auto) 7.8 x10^3/uL (1.8-7.7) Lymphocytes # (Auto) 2.0 x10^3/uL (1.0-4.8) Monocytes # (Auto) 0.9 x10^3/uL (0.0-1.1) Eosinophils # (Auto) 0.3 x10^3/uL (0.0-0.7) Basophils # (Auto) 0.1 x10^3/uL (0.0-0.2) Platelet Estimate Increased (ADEQUATE) Polychromasia Slight Hypochromasia Slight Poikilocytosis Mod Anisocytosis Mod Microcytosis Mod Target Cells Few Tear Drop Cells Few Ovalocytes Few Stomatocytes Few Prothrombin Time 13.1 SEC (11.7-14.0) Prothromb Time International Ratio 1.0 (0.8-1.1) Activated Partial Thromboplast Time 31 SEC (24-38) Sodium Level 138 mmol/L (136-145) Potassium Level 3.9 mmol/L (3.5-5.1) Chloride Level 103 mmol/L (98-107) Carbon Dioxide Level 25 mmol/L (21-32) Anion Gap 10 (6-14) Blood Urea Nitrogen 15 mg/dL (7-20) Creatinine 0.7 mg/dL (0.6-1.0) Estimated GFR (Cockcroft-Gault) 90.1 BUN/Creatinine Ratio 21 (6-20) Glucose Level 93 mg/dL (70-99) Calcium Level 8.9 mg/dL (8.5-10.1) Total Bilirubin 0.3 mg/dL (0.2-1.0) Aspartate Amino Transf (AST/SGOT) 12 U/L (15-37) Alanine Aminotransferase (ALT/SGPT) 13 U/L (14-59) Alkaline Phosphatase 87 U/L (46-116) Total Protein 7.7 g/dL (6.4-8.2) Albumin 3.8 g/dL (3.4-5.0) Albumin/Globulin Ratio 1.0 (1.0-1.7) Lipase 105 U/L (73-393) Laboratory Tests Test 05/09/19 12:00 White Blood Count 11.0 x10^3/uL (4.0-11.0) Red Blood Count 3.86 x10^6/uL (3.50-5.40) Hemoglobin 8.4 g/dL (12.0-15.5) Hematocrit 27.0 % (36.0-47.0) Mean Corpuscular Volume 70 fL (79-100) Mean Corpuscular Hemoglobin 22 pg (25-35) Mean Corpuscular Hemoglobin Concent 31 g/dL (31-37) Red Cell Distribution Width 21.7 % (11.5-14.5) Platelet Count 573 x10^3/uL (140-400) Neutrophils (%) (Auto) 71 % (31-73) Lymphocytes (%) (Auto) 18 % (24-48) Monocytes (%) (Auto) 8 % (0-9) Eosinophils (%) (Auto) 2 % (0-3) Basophils (%) (Auto) 1 % (0-3) Neutrophils # (Auto) 7.8 x10^3/uL (1.8-7.7) Lymphocytes # (Auto) 2.0 x10^3/uL (1.0-4.8) Monocytes # (Auto) 0.9 x10^3/uL (0.0-1.1) Eosinophils # (Auto) 0.3 x10^3/uL (0.0-0.7) Basophils # (Auto) 0.1 x10^3/uL (0.0-0.2) Platelet Estimate Increased (ADEQUATE) Polychromasia Slight Hypochromasia Slight Poikilocytosis Mod Anisocytosis Mod Microcytosis Mod Target Cells Few Tear Drop Cells Few Ovalocytes Few Stomatocytes Few Prothrombin Time 13.1 SEC (11.7-14.0) Prothromb Time International Ratio 1.0 (0.8-1.1) Activated Partial Thromboplast Time 31 SEC (24-38) Sodium Level 138 mmol/L (136-145) Potassium Level 3.9 mmol/L (3.5-5.1) Chloride Level 103 mmol/L (98-107) Carbon Dioxide Level 25 mmol/L (21-32) Anion Gap 10 (6-14) Blood Urea Nitrogen 15 mg/dL (7-20) Creatinine 0.7 mg/dL (0.6-1.0) Estimated GFR (Cockcroft-Gault) 90.1 BUN/Creatinine Ratio 21 (6-20) Glucose Level 93 mg/dL (70-99) Calcium Level 8.9 mg/dL (8.5-10.1) Total Bilirubin 0.3 mg/dL (0.2-1.0) Aspartate Amino Transf (AST/SGOT) 12 U/L (15-37) Alanine Aminotransferase (ALT/SGPT) 13 U/L (14-59) Alkaline Phosphatase 87 U/L (46-116) Total Protein 7.7 g/dL (6.4-8.2) Albumin 3.8 g/dL (3.4-5.0) Albumin/Globulin Ratio 1.0 (1.0-1.7) Lipase 105 U/L (73-393) VTE Prophylaxis Ordered VTE Prophylaxis Devices: No VTE Pharmacological Prophylaxi: No Assessment/Plan Assessment/Plan A: Abd pain with seroma P: Admit for observation and pain management. GAGAN GARCIA Jr, MD May 09, 2019 20:38
[2019-05-09 22:49] VITALS: BP 104/63
[2019-05-09] MEDS: oxyCODONE/APAP 7.5/325 1 TAB TABLET PO PRN (23:41)
[2019-05-10] MEDS: MORPHINE SULFATE 4 MG/ML VIAL. IV PRN (02:11)
[2019-05-10 02:47] VITALS: BP 90/51
[2019-05-10] MEDS: oxyCODONE/APAP 7.5/325 1 TAB TABLET PO PRN ×2 (04:07→12:17)
[2019-05-10] MEDS: IV RINGERS,LACTATED 1000ML 1,000 ML IV SCH ×2 (05:49→06:11)
--- NOTE | 2019-05-10 08:35 | PDOC ---
SURGICAL PROGRESS NOTE Subjective Pt. feeling better with pain controlled. No fevers, chills, or change in incision site. Vital Signs Vital Signs Date Time Temp Pulse Resp B/P (MAP) Pulse Ox O2 Delivery O2 Flow Rate FiO2 05/10/19 07:50 97 Room Air 05/10/19 02:47 98.1 73 14 90/51 (64) 98.1 I&O Intake and Output 05/10/19 07:00 Intake Total 2450 ml Balance 2450 ml Intake Oral 450 ml IV Total 2000 ml # Voids 2 PATIENT HAS A VALENCIA: No General: Alert, Oriented X3, Cooperative HEENT: Atraumatic Lungs: Clear to auscultation Heart: Regular rate Abdomen: Normal bowel sounds, Soft, No tenderness, Other (incision site: clean, dry and intact. No evidence of infection.) Psych/Mental Status: Mental status NL Labs Laboratory Tests Test 05/09/19 12:00 White Blood Count 11.0 x10^3/uL (4.0-11.0) Red Blood Count 3.86 x10^6/uL (3.50-5.40) Hemoglobin 8.4 g/dL (12.0-15.5) Hematocrit 27.0 % (36.0-47.0) Mean Corpuscular Volume 70 fL (79-100) Mean Corpuscular Hemoglobin 22 pg (25-35) Mean Corpuscular Hemoglobin Concent 31 g/dL (31-37) Red Cell Distribution Width 21.7 % (11.5-14.5) Platelet Count 573 x10^3/uL (140-400) Neutrophils (%) (Auto) 71 % (31-73) Lymphocytes (%) (Auto) 18 % (24-48) Monocytes (%) (Auto) 8 % (0-9) Eosinophils (%) (Auto) 2 % (0-3) Basophils (%) (Auto) 1 % (0-3) Neutrophils # (Auto) 7.8 x10^3/uL (1.8-7.7) Lymphocytes # (Auto) 2.0 x10^3/uL (1.0-4.8) Monocytes # (Auto) 0.9 x10^3/uL (0.0-1.1) Eosinophils # (Auto) 0.3 x10^3/uL (0.0-0.7) Basophils # (Auto) 0.1 x10^3/uL (0.0-0.2) Platelet Estimate Increased (ADEQUATE) Polychromasia Slight Hypochromasia Slight Poikilocytosis Mod Anisocytosis Mod Microcytosis Mod Target Cells Few Tear Drop Cells Few Ovalocytes Few Stomatocytes Few Prothrombin Time 13.1 SEC (11.7-14.0) Prothromb Time International Ratio 1.0 (0.8-1.1) Activated Partial Thromboplast Time 31 SEC (24-38) Sodium Level 138 mmol/L (136-145) Potassium Level 3.9 mmol/L (3.5-5.1) Chloride Level 103 mmol/L (98-107) Carbon Dioxide Level 25 mmol/L (21-32) Anion Gap 10 (6-14) Blood Urea Nitrogen 15 mg/dL (7-20) Creatinine 0.7 mg/dL (0.6-1.0) Estimated GFR (Cockcroft-Gault) 90.1 BUN/Creatinine Ratio 21 (6-20) Glucose Level 93 mg/dL (70-99) Calcium Level 8.9 mg/dL (8.5-10.1) Total Bilirubin 0.3 mg/dL (0.2-1.0) Aspartate Amino Transf (AST/SGOT) 12 U/L (15-37) Alanine Aminotransferase (ALT/SGPT) 13 U/L (14-59) Alkaline Phosphatase 87 U/L (46-116) Total Protein 7.7 g/dL (6.4-8.2) Albumin 3.8 g/dL (3.4-5.0) Albumin/Globulin Ratio 1.0 (1.0-1.7) Lipase 105 U/L (73-393) Laboratory Tests Test 05/09/19 12:00 White Blood Count 11.0 x10^3/uL (4.0-11.0) Red Blood Count 3.86 x10^6/uL (3.50-5.40) Hemoglobin 8.4 g/dL (12.0-15.5) Hematocrit 27.0 % (36.0-47.0) Mean Corpuscular Volume 70 fL (79-100) Mean Corpuscular Hemoglobin 22 pg (25-35) Mean Corpuscular Hemoglobin Concent 31 g/dL (31-37) Red Cell Distribution Width 21.7 % (11.5-14.5) Platelet Count 573 x10^3/uL (140-400) Neutrophils (%) (Auto) 71 % (31-73) Lymphocytes (%) (Auto) 18 % (24-48) Monocytes (%) (Auto) 8 % (0-9) Eosinophils (%) (Auto) 2 % (0-3) Basophils (%) (Auto) 1 % (0-3) Neutrophils # (Auto) 7.8 x10^3/uL (1.8-7.7) Lymphocytes # (Auto) 2.0 x10^3/uL (1.0-4.8) Monocytes # (Auto) 0.9 x10^3/uL (0.0-1.1) Eosinophils # (Auto) 0.3 x10^3/uL (0.0-0.7) Basophils # (Auto) 0.1 x10^3/uL (0.0-0.2) Platelet Estimate Increased (ADEQUATE) Polychromasia Slight Hypochromasia Slight Poikilocytosis Mod Anisocytosis Mod Microcytosis Mod Target Cells Few Tear Drop Cells Few Ovalocytes Few Stomatocytes Few Prothrombin Time 13.1 SEC (11.7-14.0) Prothromb Time International Ratio 1.0 (0.8-1.1) Activated Partial Thromboplast Time 31 SEC (24-38) Sodium Level 138 mmol/L (136-145) Potassium Level 3.9 mmol/L (3.5-5.1) Chloride Level 103 mmol/L (98-107) Carbon Dioxide Level 25 mmol/L (21-32) Anion Gap 10 (6-14) Blood Urea Nitrogen 15 mg/dL (7-20) Creatinine 0.7 mg/dL (0.6-1.0) Estimated GFR (Cockcroft-Gault) 90.1 BUN/Creatinine Ratio 21 (6-20) Glucose Level 93 mg/dL (70-99) Calcium Level 8.9 mg/dL (8.5-10.1) Total Bilirubin 0.3 mg/dL (0.2-1.0) Aspartate Amino Transf (AST/SGOT) 12 U/L (15-37) Alanine Aminotransferase (ALT/SGPT) 13 U/L (14-59) Alkaline Phosphatase 87 U/L (46-116) Total Protein 7.7 g/dL (6.4-8.2) Albumin 3.8 g/dL (3.4-5.0) Albumin/Globulin Ratio 1.0 (1.0-1.7) Lipase 105 U/L (73-393) Problem List Problems Medical Problems: (1) Postoperative abdominal pain Status: Acute (2) Seroma after procedure Status: Acute Assessment/Plan A: Abd pain with seroma P: D/c home. F/u in 1 week. GAGAN GARCIA Jr, MD May 10, 2019 08:35
[2019-05-10] MEDS ORDERED: OXYC1TAB19 PO (08:38)
[2019-05-10] MEDS ORDERED: KETO30SY2 PO (08:38)
--- NOTE | 2019-05-10 08:39 | DISCH ---
DISCHARGE INSTRUCTIONS Condition on Discharge Condition on Discharge: Stable Activity After Discharge Activity Instructions for Disc: Activity as tolerated Lifting Instructions after Dis: No heavy lifting Driving Instructions after Dis: No driving for 2 weeks Diet after Discharge Diet after Discharge: Regular Contacting the DRGary after DC Call your doctor for: Concerns you may have Follow-Up Follow up with: Dr. Calixto in 1 week GAGAN CALIXTO Jr, MD May 10, 2019 08:39
== END 2019-05-10 13:30 | disposition home or self-care (01) ==
LOC: ER 10:58 → 3 NORTH 14:10
PROVIDERS: ADMIT Obstetrics & Gynecology; ATTEND Obstetrics & Gynecology
DX: G89.18 Other acute postprocedural pain (principal); R10.30 Lower abdominal pain, unspecified; N99.842 Postprocedural seroma of a genitourinary system organ or structure following a genitourinary system procedure; Z90.710 Acquired absence of both cervix and uterus
CPT/HCPCS: 36415; 74177; 80053; 83690; 85025; 85610; 85730; 96374; 96375; 96376; 99284; G0378; J1885; J2270; J2405; J3010; J7120; Q9967; G0379

== ENCOUNTER → 2019-06-13 | Outpatient (CLI) | payer OTHER ==
[~2019-06-13] MED LIST changes: +KETO30SY2 PO; +OXYC1TAB19 PO
[2019-06-13 16:39] LABS: BASO # 0.1 x10^3/uL (0.0-0.2); BASO % 1 % (0-3); EOS # 0.2 x10^3/uL (0.0-0.7); EOS % 2 % (0-3); HEMATOCRIT 29.3 % (36.0-47.0); HEMOGLOBIN 8.9 g/dL (12.0-15.5); LYMPH # 1.8 x10^3/uL (1.0-4.8); LYMPH % 18 % (24-48); MEAN CORPUSCULAR HEMOGLOBIN 22 pg (25-35); MEAN CORPUSCULAR HGB CONC 30 g/dL (31-37); MEAN CORPUSCULAR VOLUME 74 fL (79-100); MONO % 10 % (0-9); NEUT # 7.1 x10^3/uL (1.8-7.7); NEUT % 70 % (31-73); PLATELET COUNT 421 x10^3/uL (140-400); RED BLOOD COUNT 3.96 x10^6/uL (3.50-5.40); RED CELL DISTRIBUTION WIDTH 24.7 % (11.5-14.5); WHITE BLOOD COUNT 10.1 x10^3/uL (4.0-11.0)
[2019-06-13 17:43] LABS: CHOLESTEROL/HDL RATIO 4.1
[2019-06-13 17:44] LABS: FREE T4 1.05 ng/dL (0.76-1.46); THYROID STIM HORMONE (TSH) 2.035 uIU/mL (0.358-3.74)
[2019-06-13 18:56] LABS: PLT ESTIMATE INCREASED (ADEQUATE)
[2019-06-13 18:57] LABS: ANISOCYTOSIS SLIGHT; HYPOCHROMIA SLIGHT; OVALOCYTES OCC
[2019-06-13 23:07] LABS: ESTRADIOL LEVEL 129.3 pg/mL (.); FSH 3.7 mIU/mL (.); PROGESTERONE 1.1 ng/mL (.); TESTOSTERONE TOTAL 11 ng/dL (8-48)
== END | disposition home or self-care (01) ==
LOC: LAB 15:43
PROVIDERS: ATTEND Obstetrics & Gynecology
DX: Z09 Encounter for follow-up examination after completed treatment for conditions other than malignant neoplasm (principal); N95.1 Menopausal and female climacteric states
CPT/HCPCS: 80061; 82670; 82679; 83001; 83540; 83550; 84144; 84403; 84439; 84443; 85025